=== PATIENT | female | born 1995 | race African-American/Black ===

== ENCOUNTER 2017-02-10 17:48 | Emergency (ER) | payer OTHER ==
[2017-02-10] MEDS ORDERED: RX INFO: IV CONTRAST WAS GIVEN 1 EACH MISC MISCELLANE PRN (18:18)
[2017-02-10] MEDS ORDERED: ONDANSETRON 4 MG/2 ML VIAL IVP STA (18:24)
[2017-02-10] MEDS ORDERED: MORPHINE SULFATE 2 MG/ML SYRINGE IVP STA (18:24)
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
--- NOTE | 2017-02-10 18:44 | XR ---
EXAMINATION TYPE: XR chest 1V portable DATE OF EXAM: 02/10/2017 COMPARISON: NONE HISTORY: Back pain TECHNIQUE: Single frontal view of the chest is obtained. FINDINGS: Heart and mediastinum are normal. Lungs are clear. Diaphragm is normal. There is mild thor acic dextroscoliosis. IMPRESSION: No cardiopulmonary disease.
[2017-02-10] MEDS ORDERED: MORPHINE SULFATE 2 MG/ML SYRINGE IVP ONE ×3 (19:10→19:53)
[2017-02-10 19:13] LABS: Appearance,Urine Clear (Clear); Bilirubin,Urine Negative (Negative); Glucose,Urine (UA) Negative (Negative); Ketones,Urine Negative (Negative); Leukocyte Esterase,Urine Negative (Negative); Nitrite,Urine Negative (Negative); Protein,Urine Negative (Negative); Specific Gravity,Urine 1.019 (1.001-1.035); UA Billing (MACRO vs. MICRO) CHEM; Urobilinogen,Urine <2.0 mg/dL (<2.0)
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
[2017-02-10 21:28] VITALS: BP 110/69; PULSE 78; RESP 16; TEMP 98.2
== END 2017-02-10 21:28 | disposition home or self-care (01) ==
LOC: EC 17:48
DX: M54.6 Pain in thoracic spine (principal); R07.81 Pleurodynia; F17.200 Nicotine dependence, unspecified, uncomplicated; Z79.899 Other long term (current) drug therapy; Z53.8 Procedure and treatment not carried out for other reasons; V03.19XA Pedestrian with other conveyance injured in collision with car, pick-up truck or van in traffic accident, initial encounter; Y93.01 Activity, walking, marching and hiking; Y92.410 Unspecified street and highway as the place of occurrence of the external cause
CPT/HCPCS: 81003; 81025; 71010; 71260; 74177; 99284; 96374; J2270; Q9967